=== PATIENT | male | born 1985 | race African-American/Black ===

== ENCOUNTER 2024-01-15 10:10 | Observation (INO) | payer OTHER, SELFPAY ==
[~2024-01-15] VITALS: Ht 177.8 cm; Wt 79.5 kg
[2024-01-15] MEDS: fentaNYL 100 MCG/2 ML INJECTION IV ONE (13:45)
[2024-01-15] MEDS: ONDANSETRON 4MG 2ML VIAL IV ONE (13:56)
[2024-01-15] MEDS: NS 1,000 ML IV ONE (13:57)
[2024-01-15 14:11] LABS: HEMATOCRIT 45.3 % (42.0-52.0); HEMOGLOBIN 15.9 g/dl (13.5-17.5); MEAN CORPUSCULAR HGB CONC 35.1 g/dl (32.0-36.5); MEAN CORPUSCULAR VOLUME 88.3 fl (80.0-96.0); PLATELET COUNT, AUTOMATED 242 10^3/uL (150-450); RED BLOOD COUNT 5.13 10^6/uL (4.30-6.10); WHITE BLOOD COUNT 7.2 10^3/uL (4.0-10.0)
[2024-01-15] MEDS ORDERED: MORPHINE 4 MG/ML 1ML VIAL IV ONE (14:20)
[2024-01-15 14:35] LABS: BLOOD UREA NITROGEN 17 MG/DL (9-23); CALCIUM LEVEL 9.6 MG/DL (8.5-10.1); CARBON DIOXIDE LEVEL 28 MMOL/L (20-31); CHLORIDE LEVEL 106 MMOL/L (98-107); CREATININE FOR GFR 0.76 MG/DL (0.70-1.30); GLOMERULAR FILTRATION RATE > 60.0 (>60); GLUCOSE, FASTING 96 MG/DL (60-100); POTASSIUM SERUM 4.3 MMOL/L (3.5-5.1); SODIUM LEVEL 140 MMOL/L (136-145)
[2024-01-15] MEDS: MORPHINE 4 MG/ML 1ML VIAL IV ONE (14:56)
[2024-01-15] MEDS ORDERED: MORPHINE 2 MG/ML 1ML VIAL IV PRN (15:15)
[2024-01-15] MEDS ORDERED: HOME MED LIST COMPLETE! XX SCH (15:30)
[2024-01-15] MEDS ORDERED: ONDANSETRON 4MG TAB PO PRN (15:40)
[2024-01-15 17:08] LABS: INR 1.08; PROTHROMBIN TIME 13.7 SECONDS (12.5-14.5)
[2024-01-15 17:30] VITALS: BP 132/84; TEMP 98.4; O2SAT 96
[2024-01-15] MEDS: MORPHINE 4 MG/ML 1ML VIAL IV PRN (18:09)
[2024-01-15] MEDS: ACETAMINOPHEN TAB 650MG DOSE (2X325MG) PO PRN (18:09)
[2024-01-15] MEDS: NICOTINE 14 MG/24 HR TRANSDERMAL TD SCH (18:10)
[2024-01-15 19:47] VITALS: BP 126/85; TEMP 98.1; O2SAT 100
[2024-01-16] MEDS: LR 1,000 ML IV SCH ×2 (01:03→12:10)
[2024-01-16 04:33] VITALS: BP 131/85; TEMP 98.1; O2SAT 98
[2024-01-16 06:39] LABS: HEMATOCRIT 39.5 % (42.0-52.0); MEAN CORPUSCULAR HEMOGLOBIN 31.1 pg (27.0-33.0); MEAN CORPUSCULAR HGB CONC 34.4 g/dl (32.0-36.5); MEAN CORPUSCULAR VOLUME 90.2 fl (80.0-96.0); PLATELET COUNT, AUTOMATED 189 10^3/uL (150-450); RED BLOOD COUNT 4.38 10^6/uL (4.30-6.10); WHITE BLOOD COUNT 6.3 10^3/uL (4.0-10.0)
[2024-01-16 06:50] LABS: HEMOGLOBIN 13.6 g/dl (13.5-17.5)
[2024-01-16 07:07] LABS: ALBUMIN 3.5 G/DL (3.2-5.2); ALKALINE PHOSPHATASE 39 U/L (46-116); ALT/SGPT 21 U/L (7.0-40); AST/SGOT 9 U/L (<34); BILIRUBIN,TOTAL 1.1 MG/DL (0.3-1.2); BLOOD UREA NITROGEN 14 MG/DL (9-23); CALCIUM LEVEL 8.9 MG/DL (8.5-10.1); CARBON DIOXIDE LEVEL 29 MMOL/L (20-31); CHLORIDE LEVEL 107 MMOL/L (98-107); CREATININE FOR GFR 0.83 MG/DL (0.70-1.30); GLOMERULAR FILTRATION RATE > 60.0 (>60); GLUCOSE, FASTING 92 MG/DL (60-100); POTASSIUM SERUM 4.1 MMOL/L (3.5-5.1); SODIUM LEVEL 140 MMOL/L (136-145)
[2024-01-16] MEDS ORDERED: MIDAZOLAM INJ 2MG/2ML VIAL As Ordered ONE (10:51)
[2024-01-16] MEDS ORDERED: fentaNYL 100 MCG/2 ML INJECTION As Ordered ONE (10:52)
[2024-01-16] MEDS ORDERED: LIDOCAINE 2% 100MG/5ML SDV (FOR ANES.) As Ordered ONE (11:14)
[2024-01-16] MEDS ORDERED: ONDANSETRON 4MG 2ML VIAL As Ordered ONE (11:14)
[2024-01-16] MEDS ORDERED: propofoL 200 MG/20 ML VIAL As Ordered ONE (11:14)
[2024-01-16] MEDS ORDERED: ACETAMINOPHEN 1000MG 100ML IV BAG As Ordered ONE (11:15)
[2024-01-16] MEDS: ceFAZolin 2 GM/D5W 50 ML IV BAG As Ordered ONE (11:15)
[2024-01-16] MEDS ORDERED: HYDROmorphone HCL 2MG/ML 1ML VIAL As Ordered ONE (11:26)
[2024-01-16] MEDS ORDERED: KETOROLAC 60MG 2ML VIAL As Ordered ONE (12:06)
[2024-01-16] MEDS ORDERED: ONDANSETRON 4MG 2ML VIAL IV PRN (12:10)
[2024-01-16] MEDS ORDERED: fentaNYL 100 MCG/2 ML INJECTION IV PRN (12:10)
[2024-01-16] MEDS ORDERED: oxyCODONE 5MG TAB PO PRN (12:10)
[2024-01-16] MEDS ORDERED: HYDROMORPHONE HCL 0.5 MG/ 0.5 ML SYRINGE IV PRN (12:10)
[2024-01-16 13:24] VITALS: BP 117/84; TEMP 97.2; O2SAT 95
[2024-01-16] MEDS ORDERED: ACET1TAB55 PO (13:45)
[2024-01-16] MEDS ORDERED: OXYC1TAB23 PO (13:45)
[2024-01-16 13:53] VITALS: BP 136/91; TEMP 97.2; O2SAT 97
[2024-01-16 14:26] VITALS: BP 119/86; TEMP 93.9; O2SAT 96
[2024-01-16 15:31] VITALS: BP 103/74; TEMP 97; O2SAT 97
[2024-01-16 16:01] LABS: ALBUMIN 4.5 G/DL (3.2-5.2); ALKALINE PHOSPHATASE 45 U/L (46-116); ALT/SGPT 33 U/L (7.0-40); AST/SGOT 37 U/L (<34); BILIRUBIN,TOTAL 0.8 MG/DL (0.3-1.2); TOTAL PROTEIN 7.4 G/DL (5.7-8.2)
[2024-01-16 16:41] LABS: HEPATITIS B SURFACE ANTIGEN NEGATIVE (NEGATIVE)
[2024-01-16 16:55] LABS: HIV SCREEN CENTAUR SOURCE NEGATIVE (NEGATIVE)
[2024-01-16] MEDS ORDERED: ceFAZolin SOD 2 GM in IV 1 EA IV SCH (19:30)
== END 2024-01-16 16:15 | disposition home or self-care (01) ==
LOC: M ED 10:10 → M ED INP 10:11 → M MS5PR 10:11 → UNDOADMOB 10:11 → M MS5PR 17:20 → M ED INP 17:20 → UNDODISOB 01-16 16:15
PROVIDERS: ADMIT Internal Medicine; ATTEND Internal Medicine
DX: S82.851A Displaced trimalleolar fracture of right lower leg, initial encounter for closed fracture (principal); W20.8XXA Other cause of strike by thrown, projected or falling object, initial encounter; Y92.29 Other specified public building as the place of occurrence of the external cause; Y99.0 Civilian activity done for income or pay; F17.218 Nicotine dependence, cigarettes, with other nicotine-induced disorders
CPT/HCPCS: 27814; 27829; 36415; 73590; 73600; 73610; 76000; 80053; 85027; 85610; 86803; 86850; 86900; 86901; 87340; 87389; 96374; 96375; 96376; 97116; 97530; 99284; C1713; J0131; J0665; J0690; J1100; J1170; J1885; J2250; J2405; J3010